=== PATIENT | female | born 1980 | race Caucasian/White ===

== ENCOUNTER 2017-10-09 16:31 | Outpatient (CLI) | payer OTHER ==
[2013-07-13 20:38] VITALS: BP 116/77
[2017-10-09 17:22] LABS: BASOPHILS % 0.5 (0.0-1.5); MEAN CORPUSCULAR HEMOGLOBIN 30.1 pg (28.0-34.0); MEAN CORPUSCULAR VOLUME 91.1 fl (80.0-100.0); MONOCYTES % 5.1 % (0.0-11.0); NEUTROPHILS # 4.4 # k/uL (1.4-7.7)
[2017-10-09 18:04] LABS: eGFR (African) > 60; eGFR (Non-African) > 60
== END 2017-10-09 16:32 ==
LOC: LAB 16:31
PROVIDERS: ATTEND Physician Assistant
DX: R53.83 Other fatigue (principal)
CPT/HCPCS: 36415; 80053; 82652; 84439; 84443; 84481; 85025